=== PATIENT | male | born 1955 ===

== ENCOUNTER 2021-07-25 13:53 | Emergency (ER) | payer MEDICARE, OTHER ==
[~2021-07-25] VITALS: Ht 170.2 cm; Wt 88.5 kg
[2021-07-25 13:55] VITALS: BP_SYST 161
--- NOTE | 2021-07-25 14:00 | NUR ---
TRIAGED AND BROUGHT BACK TO BED #3, REPORT GIVEN TO CARLEE
--- NOTE | 2021-07-25 14:05 | NUR ---
PATIENT WAS USING CHAIN SAW WHILE CUTTING A TREE, CHAIN SAW SLIPPED OFF TREE BRANCH AND CAME DOWN ONTO LEFT GREAT TOE. LACERATION NOTED TO MEDIAL ASPECT OF GREAT TOE. NO ACTIVE BLEEING NOTED.
--- NOTE | 2021-07-25 14:10 | NUR ---
LACERATION CLEANSED WITH STERILE NORMAL SALINE.
[2021-07-25] MEDS ORDERED: DIPH-TET-PERTUS Vaccine 0.5 ML VIAL (ADACEL) I.M. ONE (14:30)
[2021-07-25] MEDS ORDERED: LIDOCAINE 1% 10 MG/ML, 20 ML MDV IM ONE (14:30)
--- NOTE | 2021-07-25 14:38 | NUR ---
TDAP VACCINE GIVEN INTO RIGHT DELTOID, PATIENT TOLERATED WELL.
--- NOTE | 2021-07-25 15:00 | NUR ---
PLACED 7 SUTURES
--- NOTE | 2021-07-25 15:15 | NUR ---
PATIENT EDUCATED ON AFTERCARE FOR SUTURES, PATIENT HAS VERBALIZED UNDERSTANDING.
[2021-07-25 15:28] VITALS: BP_SYST 161
--- NOTE | 2021-07-25 15:29 | NUR ---
Patient given written and verbal discharge instructions and verbalizes understanding. ER MD discussed with patient the results and treatment provided. Patient in stable condition. ID arm band removed. IV catheter removed intact and dressing applied, no active bleeding. Rx of given. Patient educated on pain management and to follow up with PMD. Opportunity for questions provided and answered. Medication side effect fact sheet provided.
== END 2021-07-25 15:28 | disposition home or self-care (01) ==
LOC: SED 13:53
DX: S91.312A Laceration without foreign body, left foot, initial encounter (principal); W45.8XXA Other foreign body or object entering through skin, initial encounter; Y93.89 Activity, other specified; Y92.89 Other specified places as the place of occurrence of the external cause; Y99.8 Other external cause status
CPT/HCPCS: 99283; 90715; 90471; 12001; J2001